=== PATIENT | male | born 1955 | race Caucasian/White ===

== ENCOUNTER 2016-07-29 10:02 | Observation (INO) | payer BC ==
--- NOTE | ~2016-07-29 | DS ---
Discharge Summary [facility] [address] [place]. [address] NAME: MITCH GARNETT : 53 STATUS : DIS Garo PAT#: [id number] AGE: 60 ADM/REG DATE : 07/29/16 MR#: [id number] REPORT SERV DATE: 07/31/16 DICTATED BY: ADRY GRANGER DATE: 07/30/16 REPORT STATUS : Draft TRANSCRIBED BY: MODL DATE: 07/30/16 ADMISSION DATE: 07/29/2016 DISCHARGE DATE: 07/30/2016 PRIMARY CARE PHYSICIAN: Mikey Robertson. CONSULTING PHYSICIANS: [facility], Dr. Rick, outpatient pipeline operator, Dr. So. FINAL DIAGNOSES: 1. Atypical chest pain. 2. Hypertension. 3. Neck pain. 4. Shoulder pain likely secondary to osteoarthritis. 5. Obesity. DIAGNOSTIC EXAMS: Cardiac cath showing mild coronary artery disease without significant stenosis. Normal left ventricular systolic function with EF of 60%. No significant mitral regurg. Small gradient across the aortic valve during pullback. Cervical spine CAT scan showing spondylotic changes. No acute fracture or dislocation. Upper lung mckeon are clear. Cervical visceral spaces are normal. No evidence of any adenopathy. There are some small nodes at level 2 and 3, do not appear pathologically enlarged. CAT scan of the brain without showing negative head CT. Right shoulder x-ray showing moderate degenerative spur at the inferior glenoid labrum. No acute injury. Chest x-ray, no acute cardiopulmonary disease. Low lung volumes. HOSPITAL COURSE: Please refer to the H and P done by Dr. Leslie Mccann on 07/29/2016, and the interim discharge summary done by Dr. Paez done on 07/30. Since I took care of this patient, the patient underwent a cardiac cath and shows the above findings. It is unclear on what is causing his chest pain, but it does not seem to be the heart or lungs. With that, the spine CAT scan and shoulder x-ray which was unremarkable as well. The patient said he has been having this for years and it is not clear what is causing it. At this point, I do not think that there is much we can do in the hospital. He might need to follow up with his PCP in one to two weeks and he will continue his regular medications of aspirin 325 mg a day, Crestor 20 mg at bedtime, and Prinzide 20/12.5, half a tab q.day. This has been explained to the patient at length in front of the . TIME SPENT: 45 minutes. BRII/SURY Adry Granger M.D. / [id number]
[~2016-07-29 10:02] MED LIST: ASA5GR PO; CRESTOR20 MG PO; HYDROCHLOROT12.5 MG PO; NITROQUICK0.4 MG SL; PRILO PO; PRIN20 PO; PRINZIDE1 TA1 PO; ZOCOR40 PO
[2016-07-30 07:43] LABS: BASOPHILS 0.3 %; BASOPHILS ABSOLUTE 0.02 10/3/uL (0.0-0.16); EOSINOPHILS 1.5 %; EOSINOPHILS ABSOLUTE 0.11 10/3/uL (0.0-0.53); HEMATOCRIT 39.8 % (40.0-51.0); HEMOGLOBIN 14.2 g/dL (13.6-17.8); IMMATURE GRANULOCYTES 0.1 %; IMMATURE GRANULOCYTES ABSOLUTE 0.01 10/3/uL (0.0-0.11); LYMPHOCYTES 21.3 %; LYMPHOCYTES ABSOLUTE 1.53 10/3/uL (0.67-4.30); MEAN CORPUS HGB CONC 35.7 g/dL (32.0-36.0); MEAN CORPUSCULAR HEMOGLOB 31.3 pg (26.0-34.0); MEAN CORPUSCULAR VOLUME 87.7 fL (80-100); MEAN PLATELET VOLUME 10.1 fL (9.2-13.0); MONOCYTES 7.5 %; MONOCYTES ABSOLUTE 0.54 10/3/uL (0.21-1.20); NEUTROPHILS 69.3 %; NEUTROPHILS ABSOLUTE 4.96 10/3/uL (2.02-8.40); PLATELET COUNT 212 10/3/uL (150-400); RBC DISTRIBUTION WIDTH 12.8 % (12.0-16.0); RED CELL COUNT 4.54 10/6/uL (4.7-6.1); WHITE BLOOD CELLS 7.2 10/3/uL (4.5-10.5)
[2016-07-30 07:48] LABS: MANUAL DIFF NO %
[2016-07-30 07:59] LABS: BUN (BLOOD UREA NITROGEN) 11 MG/DL (6-23); CALCIUM, SERUM 8.6 MG/DL (8.5-10.4); CHLORIDE, SERUM 107 MMOL/L (96-112); CO2 (CARBON DIOXIDE) 26 MMOL/L (24-34); CREATININE 1.03 MG/DL (0.70-1.30); GFR AFRICAN AMERICAN 90 ML/MIN (>=60); GFR NON AFRICAN AMERICAN 78 ML/MIN (>=60); GLUCOSE, SERUM 91 MG/DL (60-99); PHOSPHORUS, SERUM 2.9 MG/DL (2.5-4.5); POTASSIUM, SERUM 4.1 MMOL/L (3.5-5.3); SODIUM, SERUM 141 MMOL/L (135-148)
== END 2016-07-30 18:20 | disposition home or self-care (01) ==
LOC: CORLMH 10:02 → SSU1 11:55 → 7NO 20:25
PROVIDERS: Internal Medicine
DX: I25.119 Atherosclerotic heart disease of native coronary artery with unspecified angina pectoris (principal); I10 Essential (primary) hypertension; E66.9 Obesity, unspecified; E78.5 Hyperlipidemia, unspecified; G47.30 Sleep apnea, unspecified; M54.2 Cervicalgia
CPT/HCPCS: 70450; 72125; 73030-RT; 80048; 83036; 83735; 84100; 85025; 93458; 99152; 99153; A9270-GY; C1769; C1887; C1894; G0378; J2250; J3010; Q9967